=== PATIENT | female | born 1940 | race Caucasian/White ===

== ENCOUNTER → 2016-03-13 | Outpatient (CLI) | payer MEDICARE ==
[~2016-03-13] MED LIST: ALBUTEROL0.83 MG/ML IH; ALMACONE 360 M360 ML PO; ASPIRIN E.C. 8181 MG PO; CEPHALEXIN500 M1 PO; CIPRO 500MG TA500 MG PO; COREG12.5 MG PO; DEMADEX 20MG20 M1 PO; DOXYCYCLINE 10100 MG PO; FLEXERIL 1010 MG/TAB PO; FLEXERIL5 MG PO; FLONASE NASAL S16 GM NS; FLONASEALLERGY NS; GENTLE LAXATIVE10 MG RC; GLUCOPHAGE500 MG/TAB PO; IMODIUM 2MG CAPS2 MG PO; IPRATROPIUM BROM3 M1 IH; K-DUR20 MEQ PO; KLONOPIN 0.5MG0.5 MG PO; LASIX 20MG TABL20 MG PO; LASIX 40MG TABL40 MG; LASIX 40MG TABL40 MG PO; LASIX 80MG TABL80 MG PO; LEVAQUIN 5500 MG/TA1 PO; LEVAQUIN 750MG750 M1 PO; LEVEMIR100 U/ML SQ; LIORESAL 1010 MG/TAB PO; MEDROL 4MG DOSPA4 MG PO; MILK OF MA400 MG/52 PO; MOBIC15 MG PO; MUCINEX1200 MG PO; MYCOSTATIN100000 U/G TP; NEB; NORCO 325 MG-51 TAB PO; OMNICEF 300MG300 MG PO; PARCOPA 25/101 UDTAB PO; PLAVIX 75MG TAB75 MG PO; PREDNISONE20 MG PO; PROVENTIL0.09 MG/A1 IH; REQUIP 0.5MG0.5 MG PO; REQUIP 1MG T1 MG/TAB PO; RT ADVAIR 228 DISKUS IH; RT ADVAIR HFA 1112 G IH; SINEMET 25/101 UDTAB PO; TYLENOL 325MG325 MG PO; ZESTRIL30 MG PO; [UNRECOGNIZED DRUG - REMARK]
== END ==
LOC: COL.VAS 10:39
DX: M79.604 Pain in right leg (principal); M79.89 Other specified soft tissue disorders

== ENCOUNTER → 2016-03-18 | Outpatient (CLI) | payer MEDICARE | LOC: COL.RAD 11:37 | DX: M51.26 Other intervertebral disc displacement, lumbar region (principal) ==

== ENCOUNTER → 2016-04-01 | Outpatient (CLI) | payer MEDICARE ==
[~2016-04-01] VITALS: Ht 157.5 cm; Wt 118.2 kg
[2016-04-01 12:08] VITALS: BP 155/81; PULSE 93
[2016-04-01 14:15] VITALS: BP 187/103; PULSE 98
[2016-04-01 14:25] VITALS: BP 168/79; PULSE 97
== END ==
LOC: COL.RAD 11:54
DX: M48.06 Spinal stenosis, lumbar region (principal)
CPT/HCPCS: J3301

== ENCOUNTER 2016-04-20 07:49 | Emergency (ER) | payer MEDICARE ==
[~2016-04-20] VITALS: Ht 157.5 cm; Wt 118.2 kg
[~2016-04-20 07:49] MED LIST changes: -ALMACONE 360 M360 ML PO; -CEPHALEXIN500 M1 PO; -DEMADEX 20MG20 M1 PO; -DOXYCYCLINE 10100 MG PO; -FLONASEALLERGY NS; -GENTLE LAXATIVE10 MG RC; -IMODIUM 2MG CAPS2 MG PO; -IPRATROPIUM BROM3 M1 IH; -K-DUR20 MEQ PO; -LASIX 20MG TABL20 MG PO; -LASIX 80MG TABL80 MG PO; -MILK OF MA400 MG/52 PO; -MOBIC15 MG PO; -MYCOSTATIN100000 U/G TP; -REQUIP 1MG T1 MG/TAB PO; -SINEMET 25/101 UDTAB PO; -TYLENOL 325MG325 MG PO; -[UNRECOGNIZED DRUG - REMARK]
[2016-04-20 07:50] VITALS: BP 158/74; PULSE 96
[2016-04-20] MEDS ORDERED: [UNRECOGNIZED DRUG - REMARK] (08:03)
[2016-04-20] MEDS ORDERED: KLONOPIN 0.5MG0.5 MG PO (08:03)
[2016-04-20 08:41] VITALS: TEMP 97
[2016-06-16] MEDS ORDERED: LEVEMIR100 U/ML SQ (06:13)
[2016-06-16] MEDS ORDERED: ASPIRIN E.C. 8181 MG PO (06:13)
[2016-06-16] MEDS ORDERED: PLAVIX 75MG TAB75 MG PO (06:14)
[2016-06-16] MEDS ORDERED: DEMADEX 20MG20 M1 PO (06:15)
[2016-06-16] MEDS ORDERED: RT ADVAIR 228 DISKUS IH (06:15)
[2016-06-16] MEDS ORDERED: SINEMET 25/101 UDTAB PO (06:15)
[2016-06-16] MEDS ORDERED: MOBIC15 MG PO (06:16)
[2016-06-16] MEDS ORDERED: FLONASEALLERGY NS (06:17)
[2016-06-16] MEDS ORDERED: MYCOSTATIN100000 U/G TP (06:17)
[2016-06-16] MEDS ORDERED: IPRATROPIUM BROM3 M1 IH (06:18)
[2016-06-16] MEDS ORDERED: KLONOPIN 0.5MG0.5 MG PO (06:18)
[2016-06-16] MEDS ORDERED: MILK OF MA400 MG/52 PO (06:19)
[2016-06-16] MEDS ORDERED: ALMACONE 360 M360 ML PO (06:19)
[2016-06-16] MEDS ORDERED: GENTLE LAXATIVE10 MG RC (06:20)
[2016-06-16] MEDS ORDERED: IMODIUM 2MG CAPS2 MG PO (06:21)
[2016-06-16] MEDS ORDERED: TYLENOL 325MG325 MG PO (06:21)
[2016-06-16] MEDS ORDERED: NORCO 325 MG-51 TAB PO (06:21)
[2016-06-17] MEDS ORDERED: DEMADEX 20MG20 M1 PO (09:06)
[2016-06-17] MEDS ORDERED: MOBIC15 MG PO (09:08)
[2016-06-17] MEDS ORDERED: KLONOPIN 0.5MG0.5 MG PO (09:08)
[2016-06-20] MEDS ORDERED: REQUIP 1MG T1 MG/TAB PO (12:17)
== END 2016-04-20 08:40 | disposition home or self-care (01) ==
LOC: COL.ER 07:49
DX: S81.811A Laceration without foreign body, right lower leg, initial encounter (principal); L03.115 Cellulitis of right lower limb; W22.8XXA Striking against or struck by other objects, initial encounter; Y92.512 Supermarket, store or market as the place of occurrence of the external cause; I10 Essential (primary) hypertension; E11.9 Type 2 diabetes mellitus without complications

== ENCOUNTER 2016-04-29 16:54 | Emergency (ER) | payer MEDICARE ==
[~2016-04-29] VITALS: Ht 160 cm; Wt 118.2 kg
[~2016-04-29 16:54] MED LIST changes: +[UNRECOGNIZED DRUG - REMARK]
[2016-04-29 16:57] VITALS: TEMP 98.4
[2016-04-29] MEDS ORDERED: NORCO 325 MG-51 TAB PO (19:56)
[2016-04-29] MEDS ORDERED: CEPHALEXIN500 M1 PO (19:56)
[2016-04-29 20:12] VITALS: BP 123/72; PULSE 98
[2016-06-16] MEDS ORDERED: ASPIRIN E.C. 8181 MG PO (06:13)
[2016-06-16] MEDS ORDERED: LEVEMIR100 U/ML SQ (06:13)
[2016-06-16] MEDS ORDERED: PLAVIX 75MG TAB75 MG PO (06:14)
[2016-06-16] MEDS ORDERED: SINEMET 25/101 UDTAB PO (06:15)
[2016-06-16] MEDS ORDERED: DEMADEX 20MG20 M1 PO (06:15)
[2016-06-16] MEDS ORDERED: RT ADVAIR 228 DISKUS IH (06:15)
[2016-06-16] MEDS ORDERED: MOBIC15 MG PO (06:16)
[2016-06-16] MEDS ORDERED: MYCOSTATIN100000 U/G TP (06:17)
[2016-06-16] MEDS ORDERED: FLONASEALLERGY NS (06:17)
[2016-06-16] MEDS ORDERED: KLONOPIN 0.5MG0.5 MG PO (06:18)
[2016-06-16] MEDS ORDERED: IPRATROPIUM BROM3 M1 IH (06:18)
[2016-06-16] MEDS ORDERED: ALMACONE 360 M360 ML PO (06:19)
[2016-06-16] MEDS ORDERED: MILK OF MA400 MG/52 PO (06:19)
[2016-06-16] MEDS ORDERED: GENTLE LAXATIVE10 MG RC (06:20)
[2016-06-16] MEDS ORDERED: IMODIUM 2MG CAPS2 MG PO (06:21)
[2016-06-16] MEDS ORDERED: TYLENOL 325MG325 MG PO (06:21)
[2016-06-16] MEDS ORDERED: NORCO 325 MG-51 TAB PO (06:21)
[2016-06-17] MEDS ORDERED: DEMADEX 20MG20 M1 PO (09:06)
[2016-06-17] MEDS ORDERED: MOBIC15 MG PO (09:08)
[2016-06-17] MEDS ORDERED: KLONOPIN 0.5MG0.5 MG PO (09:08)
[2016-06-20] MEDS ORDERED: REQUIP 1MG T1 MG/TAB PO (12:17)
== END 2016-04-29 20:34 | disposition home or self-care (01) ==
LOC: COL.ER 16:54
DX: L03.115 Cellulitis of right lower limb (principal); S80.211A Abrasion, right knee, initial encounter; M53.3 Sacrococcygeal disorders, not elsewhere classified; M79.674 Pain in right toe(s); S81.801D Unspecified open wound, right lower leg, subsequent encounter; W19.XXXD Unspecified fall, subsequent encounter; W01.198A Fall on same level from slipping, tripping and stumbling with subsequent striking against other object, initial encounter; Y92.007 Garden or yard of unspecified non-institutional (private) residence as the place of occurrence of the external cause; Z91.81 History of falling; J44.9 Chronic obstructive pulmonary disease, unspecified; E11.9 Type 2 diabetes mellitus without complications; Z79.4 Long term (current) use of insulin; Z79.02 Long term (current) use of antithrombotics/antiplatelets
CPT/HCPCS: L1830

== ENCOUNTER 2016-04-30 17:50 | Emergency (ER) | payer MEDICARE ==
[~2016-04-30] VITALS: Ht 157.5 cm; Wt 118.2 kg
[~2016-04-30 17:50] MED LIST changes: +CEPHALEXIN500 M1 PO
[2016-04-30 17:59] VITALS: BP 139/80; TEMP 97.1
[2016-04-30 19:35] VITALS: PULSE 95
[2016-06-16] MEDS ORDERED: ASPIRIN E.C. 8181 MG PO (06:13)
[2016-06-16] MEDS ORDERED: LEVEMIR100 U/ML SQ (06:13)
[2016-06-16] MEDS ORDERED: PLAVIX 75MG TAB75 MG PO (06:14)
[2016-06-16] MEDS ORDERED: DEMADEX 20MG20 M1 PO (06:15)
[2016-06-16] MEDS ORDERED: RT ADVAIR 228 DISKUS IH (06:15)
[2016-06-16] MEDS ORDERED: SINEMET 25/101 UDTAB PO (06:15)
[2016-06-16] MEDS ORDERED: MOBIC15 MG PO (06:16)
[2016-06-16] MEDS ORDERED: MYCOSTATIN100000 U/G TP (06:17)
[2016-06-16] MEDS ORDERED: FLONASEALLERGY NS (06:17)
[2016-06-16] MEDS ORDERED: IPRATROPIUM BROM3 M1 IH (06:18)
[2016-06-16] MEDS ORDERED: KLONOPIN 0.5MG0.5 MG PO (06:18)
[2016-06-16] MEDS ORDERED: ALMACONE 360 M360 ML PO (06:19)
[2016-06-16] MEDS ORDERED: MILK OF MA400 MG/52 PO (06:19)
[2016-06-16] MEDS ORDERED: GENTLE LAXATIVE10 MG RC (06:20)
[2016-06-16] MEDS ORDERED: TYLENOL 325MG325 MG PO (06:21)
[2016-06-16] MEDS ORDERED: NORCO 325 MG-51 TAB PO (06:21)
[2016-06-16] MEDS ORDERED: IMODIUM 2MG CAPS2 MG PO (06:21)
[2016-06-17] MEDS ORDERED: DEMADEX 20MG20 M1 PO (09:06)
[2016-06-17] MEDS ORDERED: KLONOPIN 0.5MG0.5 MG PO (09:08)
[2016-06-17] MEDS ORDERED: MOBIC15 MG PO (09:08)
[2016-06-20] MEDS ORDERED: REQUIP 1MG T1 MG/TAB PO (12:17)
== END 2016-04-30 19:35 | disposition home or self-care (01) ==
LOC: COL.ER 17:50
DX: S81.812A Laceration without foreign body, left lower leg, initial encounter (principal); W22.8XXA Striking against or struck by other objects, initial encounter; Y92.009 Unspecified place in unspecified non-institutional (private) residence as the place of occurrence of the external cause; E11.9 Type 2 diabetes mellitus without complications; Z88.0 Allergy status to penicillin; Z79.4 Long term (current) use of insulin

== ENCOUNTER 2016-05-22 17:51 | Inpatient (IN) | payer MEDICARE ==
[~2016-05-22] VITALS: Ht 157.5 cm; Wt 128.7 kg
[2016-05-22 18:47] LABS: BASO # 0.1 (0.0-0.2); BASO % 0.4 % (0.0-2.0); EOS # 0.2 (0.0-0.7); GRAN # 8.2 (1.4-6.5); GRAN % 69.6 % (42.2-75.2); HEMATOCRIT 35.4 % (37.0-47.0); HEMOGLOBIN 11.1 g/dl (12.5-16.0); LYMPH # 2.6 (1.2-3.4); LYMPH % 21.6 % (20.0-51.0); MEAN CELL VOLUME 98 fl (80.0-100.0); MEAN CORPUSCULAR HEMOGLOBIN 31 pg (27.0-31.0); MEAN CORPUSCULAR HGB CONC 31 g/dl (33.0-37.0); MEAN PLATELET VOLUME 11.2 fl (7.4-10.4); MONO # 0.7 (0.1-0.6); MONO % 6.1 % (1.7-9.3); PLATELET COUNT 176 K/mm3 (130-400); RED BLOOD COUNT 3.62 M/mm3 (4.10-5.30); REDCELL DISTRIBUTION WIDTH-CV 16.3 % (11.5-14.5); WHITE BLOOD COUNT 11.8 K/mm3 (4.8-10.8)
[2016-05-22 18:59] LABS: ADJUSTED CALCIUM 9.3 mg/dL (8.4-10.2); ALBUMIN 3.8 gm/dL (3.5-5.0); BILIRUBIN,TOTAL 0.7 mg/dL (0.0-1.0); CALCIUM 9.1 mg/dL (8.4-10.2); CREATININE, serum 0.98 mg/dL (0.52-1.25); POTASSIUM 4.9 mmol/L (3.4-5.0); TOTAL PROTEIN 6.6 gm/dL (6.4-8.2)
[2016-05-22 19:17] LABS: PROTHROMBIN TIME 10.8 SECONDS (9.7-12.8)
[2016-05-22 19:20] LABS: PARTIAL THROMBOPLASTIN TIME 26.6 SECONDS (26.0-37.0)
[2016-05-22 19:33] LABS: TROPONIN-I 0.023 ng/mL (0.000-0.034)
[2016-05-22 19:34] VITALS: BP 123/64; PULSE 97
[2016-05-22 22:11] VITALS: BP 133/50; PULSE 95; TEMP 98.8
[2016-05-23] VITALS (8 sets, daily range): BP systolic 106–154; BP diastolic 34–74; PULSE 79–102; TEMP 97.2–98.7
[2016-05-23 07:21] LABS: BASO # 0.1 (0.0-0.2); BASO % 0.5 % (0.0-2.0); EOS # 0.3 (0.0-0.7); EOS % 2.8 % (0-4.0); GRAN # 6.4 (1.4-6.5); LYMPH # 2.7 (1.2-3.4); LYMPH % 26.5 % (20.0-51.0); MEAN CELL VOLUME 99 fl (80.0-100.0); MEAN CORPUSCULAR HGB CONC 30 g/dl (33.0-37.0); MEAN PLATELET VOLUME 11.4 fl (7.4-10.4); MONO # 0.7 (0.1-0.6); MONO % 6.8 % (1.7-9.3); PLATELET COUNT 205 K/mm3 (130-400); RED BLOOD COUNT 3.68 M/mm3 (4.10-5.30); REDCELL DISTRIBUTION WIDTH-CV 16.6 % (11.5-14.5); WHITE BLOOD COUNT 10.2 K/mm3 (4.8-10.8)
[2016-05-23 07:29] LABS: CREATININE, serum 0.99 mg/dL (0.52-1.25); POTASSIUM 4.8 mmol/L (3.4-5.0)
[2016-05-23 07:38] LABS: TROPONIN-I 0.043 ng/mL (0.000-0.034)
[2016-05-23 07:41] LABS: HEMATOCRIT 36.5 % (37.0-47.0); HEMOGLOBIN 11.1 g/dl (12.5-16.0); MEAN CORPUSCULAR HEMOGLOBIN 30 pg (27.0-31.0)
[2016-05-24] VITALS (7 sets, daily range): BP systolic 121–157; BP diastolic 35–89; PULSE 70–103; TEMP 97.9–98.7
[2016-05-24 07:23] LABS: CALCIUM 8.7 mg/dL (8.4-10.2); CREATININE, serum 0.96 mg/dL (0.52-1.25); POTASSIUM 4.2 mmol/L (3.4-5.0)
[2016-05-25 03:28] VITALS: BP 135/56; PULSE 92; TEMP 98.3
[2016-05-25 08:45] LABS: CREATININE, serum 1.05 mg/dL (0.52-1.25); POTASSIUM 4.2 mmol/L (3.4-5.0)
[2016-05-25 09:29] VITALS: BP 134/50; PULSE 87; TEMP 97.8
[2016-05-25 13:42] VITALS: BP 111/48; PULSE 96; TEMP 98.5
[2016-05-25 17:47] VITALS: BP 132/62; PULSE 89; TEMP 98.7
[2016-05-25 19:54] VITALS: BP 133/50; PULSE 106; TEMP 98.6
[2016-05-26 00:08] VITALS: BP 138/48; PULSE 91; TEMP 98.8
[2016-05-26 04:08] VITALS: BP 130/54; PULSE 64; TEMP 97.8
[2016-05-26 07:42] VITALS: BP 121/59; PULSE 93; TEMP 98.3
[2016-05-26 07:46] LABS: CALCIUM 9.3 mg/dL (8.4-10.2); CREATININE, serum 1.1 mg/dL (0.52-1.25); POTASSIUM 4.3 mmol/L (3.4-5.0)
[2016-05-26 11:18] VITALS: BP 136/45; PULSE 91; TEMP 97.8
[2016-05-26 15:27] VITALS: BP 119/41; PULSE 92; TEMP 98.4
[2016-05-26 20:11] VITALS: BP 142/56; PULSE 100; TEMP 98.5
[2016-05-27 00:36] VITALS: BP 158/60; PULSE 92; TEMP 97.3
[2016-05-27 04:47] VITALS: BP 133/57; PULSE 90; TEMP 98.1
[2016-05-27 07:38] VITALS: BP 120/49; PULSE 83; TEMP 98
[2016-05-27 08:16] LABS: CREATININE, serum 0.96 mg/dL (0.52-1.25)
[2016-05-27 12:06] VITALS: BP 128/45; PULSE 92; TEMP 98
[2016-05-27] MEDS ORDERED: DEMADEX 20MG20 M1 PO (14:01)
[2016-05-27 15:35] VITALS: BP 151/60; PULSE 102; TEMP 98.4
[2016-06-16] MEDS ORDERED: LEVEMIR100 U/ML SQ (06:13)
[2016-06-16] MEDS ORDERED: ASPIRIN E.C. 8181 MG PO (06:13)
[2016-06-16] MEDS ORDERED: PLAVIX 75MG TAB75 MG PO (06:14)
[2016-06-16] MEDS ORDERED: SINEMET 25/101 UDTAB PO (06:15)
[2016-06-16] MEDS ORDERED: DEMADEX 20MG20 M1 PO (06:15)
[2016-06-16] MEDS ORDERED: RT ADVAIR 228 DISKUS IH (06:15)
[2016-06-16] MEDS ORDERED: MOBIC15 MG PO (06:16)
[2016-06-16] MEDS ORDERED: FLONASEALLERGY NS (06:17)
[2016-06-16] MEDS ORDERED: MYCOSTATIN100000 U/G TP (06:17)
[2016-06-16] MEDS ORDERED: KLONOPIN 0.5MG0.5 MG PO (06:18)
[2016-06-16] MEDS ORDERED: IPRATROPIUM BROM3 M1 IH (06:18)
[2016-06-16] MEDS ORDERED: MILK OF MA400 MG/52 PO (06:19)
[2016-06-16] MEDS ORDERED: ALMACONE 360 M360 ML PO (06:19)
[2016-06-16] MEDS ORDERED: GENTLE LAXATIVE10 MG RC (06:20)
[2016-06-16] MEDS ORDERED: TYLENOL 325MG325 MG PO (06:21)
[2016-06-16] MEDS ORDERED: NORCO 325 MG-51 TAB PO (06:21)
[2016-06-16] MEDS ORDERED: IMODIUM 2MG CAPS2 MG PO (06:21)
[2016-06-17] MEDS ORDERED: DEMADEX 20MG20 M1 PO (09:06)
[2016-06-17] MEDS ORDERED: KLONOPIN 0.5MG0.5 MG PO (09:08)
[2016-06-17] MEDS ORDERED: MOBIC15 MG PO (09:08)
[2016-06-20] MEDS ORDERED: REQUIP 1MG T1 MG/TAB PO (12:17)
== END 2016-05-27 17:40 | disposition home health service (06) | DRG 292 ==
LOC: COL.ER 17:51 → MEDICAL 19:49
PROVIDERS: Emergency Medicine; Family Medicine; Internal Medicine Cardiovascular Disease
DX: I50.33 Acute on chronic diastolic (congestive) heart failure (principal); Z68.43 Body mass index [BMI] 50.0-59.9, adult; J44.9 Chronic obstructive pulmonary disease, unspecified; E11.9 Type 2 diabetes mellitus without complications; Z79.4 Long term (current) use of insulin; I25.10 Atherosclerotic heart disease of native coronary artery without angina pectoris; Z95.5 Presence of coronary angioplasty implant and graft; G20 Parkinson's disease; Z87.891 Personal history of nicotine dependence; E66.01 Morbid (severe) obesity due to excess calories; I87.8 Other specified disorders of veins
CPT/HCPCS: OP; 99222-AI; 99232-AI; 99233-AI; 99239; G0378; G8978-GP; G8979-GP; G8987-GO; G8988-GO; J0696; J1644; J1650; J1815; J1940; J3475; J7512

== ENCOUNTER → 2016-06-20 | Outpatient (CLI) | payer MEDICARE ==
[~2016-06-20] VITALS: Ht 157.5 cm; Wt 118.2 kg
[~2016-06-20] MED LIST changes: +ALMACONE 360 M360 ML PO; +DEMADEX 20MG20 M1 PO; +DOXYCYCLINE 10100 MG PO; +FLONASEALLERGY NS; +GENTLE LAXATIVE10 MG RC; +IMODIUM 2MG CAPS2 MG PO; +IPRATROPIUM BROM3 M1 IH; +K-DUR20 MEQ PO; +LASIX 20MG TABL20 MG PO; +LASIX 80MG TABL80 MG PO; +MILK OF MA400 MG/52 PO; +MOBIC15 MG PO; +MYCOSTATIN100000 U/G TP; +REQUIP 1MG T1 MG/TAB PO; +SINEMET 25/101 UDTAB PO; +TYLENOL 325MG325 MG PO
[2016-06-20 12:20] VITALS: BP 142/53; PULSE 86
[2016-06-20 13:23] VITALS: BP 159/75; PULSE 92
== END ==
LOC: COL.RAD 06-17 10:00
DX: M48.06 Spinal stenosis, lumbar region (principal)
CPT/HCPCS: J3301

== ENCOUNTER → 2016-06-23 | Outpatient (REF) ==
[2016-06-23 14:49] LABS: ADJUSTED CALCIUM 9.2 mg/dL (8.4-10.2); ALBUMIN 3.9 gm/dL (3.5-5.0); BILIRUBIN,TOTAL 0.8 mg/dL (0.0-1.0); CALCIUM 9.1 mg/dL (8.4-10.2); CREATININE, serum 1.25 mg/dL (0.52-1.25); POTASSIUM 4.6 mmol/L (3.4-5.0); TOTAL PROTEIN 6.8 gm/dL (6.4-8.2)
== END ==
LOC: ZCOL.LAB 14:18
PROVIDERS: Family Medicine
DX: Z01.89 Encounter for other specified special examinations (principal)

== ENCOUNTER 2016-08-29 18:49 | Emergency (ER) | payer MEDICARE ==
[~2016-08-29] VITALS: Ht 157.5 cm; Wt 124.5 kg
[~2016-08-29 18:49] MED LIST changes: -DOXYCYCLINE 10100 MG PO; -K-DUR20 MEQ PO; -LASIX 20MG TABL20 MG PO; -LASIX 80MG TABL80 MG PO
[2016-08-29 18:51] VITALS: TEMP 98.7
[2016-08-29 19:44] LABS: BASO # 0.1 (0.0-0.2); BASO % 0.6 % (0.0-2.0); EOS # 0.2 (0.0-0.7); EOS % 1.5 % (0-4.0); GRAN # 8.3 (1.4-6.5); GRAN % 67.4 % (42.2-75.2); HEMATOCRIT 38.9 % (37.0-47.0); HEMOGLOBIN 12.4 g/dl (12.5-16.0); LYMPH # 3.1 (1.2-3.4); LYMPH % 25.2 % (20.0-51.0); MEAN CELL VOLUME 91 fl (80.0-100.0); MEAN CORPUSCULAR HEMOGLOBIN 29 pg (27.0-31.0); MEAN CORPUSCULAR HGB CONC 32 g/dl (33.0-37.0); MEAN PLATELET VOLUME 10.8 fl (7.4-10.4); MONO # 0.6 (0.1-0.6); MONO % 4.8 % (1.7-9.3); PLATELET COUNT 201 K/mm3 (130-400); RED BLOOD COUNT 4.26 M/mm3 (4.10-5.30); WHITE BLOOD COUNT 12.3 K/mm3 (4.8-10.8)
[2016-08-29 19:54] LABS: ADJUSTED CALCIUM 9.5 mg/dL (8.4-10.2); ALANINE AMINOTRANSFERASE 14 U/L (9-52); ALBUMIN 3.9 gm/dL (3.5-5.0); ALKALINE PHOSPHATASE 85 U/L (50-136); ANION GAP 12 mmol/L (7-16); BILIRUBIN,TOTAL 0.6 mg/dL (0.0-1.0); BLOOD UREA NITROGEN 35 mg/dL (7-17); CALCIUM 9.4 mg/dL (8.4-10.2); CARBON DIOXIDE 33 mmol/L (22-30); CHLORIDE 93 mmol/L (98-107); CREATINE KINASE 96 U/L (30-135); GLUCOSE 186 mg/dL (74-106); POTASSIUM 4.2 mmol/L (3.4-5.0); SODIUM 138 mmol/L (137-145); TOTAL PROTEIN 7.3 gm/dL (6.4-8.2)
[2016-08-29 20:00] LABS: ARTERIAL BLD GAS O2 SATURATION 96.2 % (92-100); ARTERIAL BLD GAS TCO2 CT 35.6; ARTERIAL BLOOD GAS BASE EXCESS 7.4 (-2-2); ARTERIAL BLOOD GAS HCO3 33.8 meq/L (22-26); ARTERIAL BLOOD GAS PO2 90.1 mmHg (80-100); OXYHEMOGLOBIN 95.1 %
[2016-08-29 20:01] LABS: ALLEN TEST YES; ALLENS TEST RESULT PASS; ATS? YES
[2016-08-29 20:02] LABS: PROTHROMBIN TIME 10.8 SECONDS (9.7-12.8)
[2016-08-29 20:05] LABS: B-TYPE NATRIURETIC PEPTIDE 641 pg/mL (0-450)
[2016-08-29 20:08] LABS: TROPONIN-I < 0.012 ng/mL (0.000-0.034)
[2016-08-29] MEDS ORDERED: LASIX 20MG TABL20 MG PO (20:43)
[2016-08-29] MEDS ORDERED: DOXYCYCLINE 10100 MG PO (20:54)
[2016-08-29] MEDS ORDERED: PREDNISONE20 MG PO (20:54)
[2016-08-29 20:59] VITALS: BP 143/54; PULSE 58
== END 2016-08-29 21:32 | disposition home or self-care (01) ==
LOC: COL.ER 18:49
PROVIDERS: Emergency Medicine
DX: J44.1 Chronic obstructive pulmonary disease with (acute) exacerbation (principal); E11.9 Type 2 diabetes mellitus without complications; I50.9 Heart failure, unspecified; G20 Parkinson's disease; Z79.4 Long term (current) use of insulin; Z79.82 Long term (current) use of aspirin; Z79.02 Long term (current) use of antithrombotics/antiplatelets; Z95.5 Presence of coronary angioplasty implant and graft; Z95.9 Presence of cardiac and vascular implant and graft, unspecified; Z90.710 Acquired absence of both cervix and uterus; Z90.89 Acquired absence of other organs
CPT/HCPCS: J2930; J7512

== ENCOUNTER 2016-09-05 16:39 | Emergency (ER) | payer MEDICARE ==
[~2016-09-05] VITALS: Ht 157.5 cm; Wt 124.5 kg
[~2016-09-05 16:39] MED LIST changes: +DOXYCYCLINE 10100 MG PO; +LASIX 20MG TABL20 MG PO
[2016-09-05 16:43] VITALS: TEMP 98.3
[2016-09-05 17:13] LABS: VENOUS BLOOD GAS BE 7.4 (-4-4); VENOUS BLOOD GAS SAO2 76.4 % (60-80)
[2016-09-05 17:14] LABS: VENOUS BLOOD GAS SITE VENIPUNCTURE
[2016-09-05 17:16] LABS: BASO # 0.1 (0.0-0.2); BASO % 0.3 % (0.0-2.0); EOS % 0.2 % (0-4.0); GRAN # 12.5 (1.4-6.5); GRAN % 69.8 % (42.2-75.2); HEMATOCRIT 41.4 % (37.0-47.0); HEMOGLOBIN 13.5 g/dl (12.5-16.0); LYMPH # 4.4 (1.2-3.4); LYMPH % 24.6 % (20.0-51.0); MEAN CELL VOLUME 89 fl (80.0-100.0); MEAN CORPUSCULAR HEMOGLOBIN 29 pg (27.0-31.0); MEAN CORPUSCULAR HGB CONC 33 g/dl (33.0-37.0); MEAN PLATELET VOLUME 11.2 fl (7.4-10.4); MONO # 0.8 (0.1-0.6); MONO % 4.5 % (1.7-9.3); PLATELET COUNT 201 K/mm3 (130-400); RED BLOOD COUNT 4.66 M/mm3 (4.10-5.30); REDCELL DISTRIBUTION WIDTH-CV 15.7 % (11.5-14.5); WHITE BLOOD COUNT 17.9 K/mm3 (4.8-10.8)
[2016-09-05 17:34] LABS: CALCIUM 9.2 mg/dL (8.4-10.2); CREATININE, serum 1.08 mg/dL (0.52-1.25); POTASSIUM 3.4 mmol/L (3.4-5.0)
[2016-09-05 17:45] LABS: TROPONIN-I 0.013 ng/mL (0.000-0.034)
[2016-09-05 18:09] LABS: PH 6 (5-8); SQUAMOUS EPITHELIAL None Seen /hpf; URINE APPEARANCE Clear; URINE BACTERIA None Seen /hpf; URINE BILIRUBIN Negative (NEGATIVE); URINE BLOOD Negative (NEGATIVE); URINE COLOR Yellow; URINE GLUCOSE Negative (NEGATIVE); URINE KETONE Negative (NEGATIVE); URINE RBC 0-2 /hpf; URINE UROBILINOGEN Negative (NEGATIVE); URINE WBC 0-2 /hpf
[2016-09-05] MEDS ORDERED: PREDNISONE20 MG PO (18:35)
[2016-09-05 19:01] VITALS: BP 160/69; PULSE 91
== END 2016-09-05 19:03 | disposition home or self-care (01) ==
LOC: COL.ER 16:39
PROVIDERS: Emergency Medicine
DX: R06.00 Dyspnea, unspecified (principal); I11.0 Hypertensive heart disease with heart failure; I50.9 Heart failure, unspecified; I25.10 Atherosclerotic heart disease of native coronary artery without angina pectoris; G20 Parkinson's disease; E11.9 Type 2 diabetes mellitus without complications; Z95.5 Presence of coronary angioplasty implant and graft; Z79.4 Long term (current) use of insulin; Z79.02 Long term (current) use of antithrombotics/antiplatelets
CPT/HCPCS: J7030; J7512

== ENCOUNTER 2016-09-24 18:04 | Inpatient (IN) | payer MEDICARE ==
[2016-09-24] VITALS (211 sets, daily range): BP systolic 148; BP diastolic 79; PULSE 100; TEMP 97.8; O2SAT 67–100
[~2016-09-24] VITALS: Ht 157.5 cm; Wt 120.7 kg
[2016-09-24 18:46] LABS: ARTERIAL BLD GAS O2 SATURATION 95.6 % (92-100); ARTERIAL BLD GAS TCO2 CT 36.3; ARTERIAL BLOOD GAS BASE EXCESS 7.5 (-2-2); ARTERIAL BLOOD GAS HCO3 34.5 meq/L (22-26); ARTERIAL BLOOD GAS PO2 89.2 mmHg (80-100); ARTERIAL BLOOD GAS pH 7.37 (7.35-7.45); OXYHEMOGLOBIN 94.9 %
[2016-09-24 18:47] LABS: ALLEN TEST YES; ALLENS TEST RESULT PASS; ATS? YES
[2016-09-24 18:51] LABS: BASO % 0.3 % (0.0-2.0); EOS # 0.3 (0.0-0.7); EOS % 2.7 % (0-4.0); GRAN # 5.9 (1.4-6.5); GRAN % 61.7 % (42.2-75.2); LYMPH # 2.6 (1.2-3.4); LYMPH % 27.1 % (20.0-51.0); MEAN CELL VOLUME 91 fl (80.0-100.0); MEAN CORPUSCULAR HGB CONC 32 g/dl (33.0-37.0); MEAN PLATELET VOLUME 10.5 fl (7.4-10.4); MONO # 0.7 (0.1-0.6); MONO % 7.7 % (1.7-9.3); PLATELET COUNT 239 K/mm3 (130-400); RED BLOOD COUNT 3.72 M/mm3 (4.10-5.30); REDCELL DISTRIBUTION WIDTH-CV 16.9 % (11.5-14.5); WHITE BLOOD COUNT 9.6 K/mm3 (4.8-10.8)
[2016-09-24 18:54] LABS: HEMATOCRIT 33.9 % (37.0-47.0); HEMOGLOBIN 10.9 g/dl (12.5-16.0); MEAN CORPUSCULAR HEMOGLOBIN 29 pg (27.0-31.0)
[2016-09-24 18:56] LABS: ADJUSTED CALCIUM 9.5 mg/dL (8.4-10.2); ALBUMIN 3.5 gm/dL (3.5-5.0); BILIRUBIN,TOTAL 0.8 mg/dL (0.0-1.0); CALCIUM 9.1 mg/dL (8.4-10.2); CREATININE, serum 0.89 mg/dL (0.52-1.25); POTASSIUM 4.2 mmol/L (3.4-5.0); TOTAL PROTEIN 6.8 gm/dL (6.4-8.2)
[2016-09-24 19:10] LABS: PH 6 (5-8); SQUAMOUS EPITHELIAL 0-2 /hpf; URINE APPEARANCE Clear; URINE BACTERIA Rare /hpf; URINE BILIRUBIN Negative (NEGATIVE); URINE BLOOD Negative (NEGATIVE); URINE COLOR Yellow; URINE GLUCOSE Negative (NEGATIVE); URINE KETONE Negative (NEGATIVE); URINE RBC 0-2 /hpf; URINE UROBILINOGEN Negative (NEGATIVE); URINE WBC 0-2 /hpf
[2016-09-24 21:58] LABS: TROPONIN-I 0.033 ng/mL (0.000-0.034)
[2016-09-25] VITALS (593 sets, daily range): BP systolic 119–151; BP diastolic 48–78; PULSE 78–103; TEMP 97.7–99.2; O2SAT 86–99
[2016-09-25 00:24] LABS: ARTERIAL BLD GAS O2 SATURATION 91.2 % (92-100); ARTERIAL BLD GAS TCO2 CT 39.7; ARTERIAL BLOOD GAS BASE EXCESS 9.7 (-2-2); ARTERIAL BLOOD GAS HCO3 37.6 meq/L (22-26); ARTERIAL BLOOD GAS PO2 65.5 mmHg (80-100); ARTERIAL BLOOD GAS pH 7.36 (7.35-7.45); OXYHEMOGLOBIN 90.1 %
[2016-09-25 00:25] LABS: ALLEN TEST YES; ALLENS TEST RESULT PASS; ATS? YES
[2016-09-25 03:35] LABS: ARTERIAL BLD GAS O2 SATURATION 95.2 % (92-100); ARTERIAL BLD GAS TCO2 CT 36.3; ARTERIAL BLOOD GAS BASE EXCESS 7.9 (-2-2); ARTERIAL BLOOD GAS HCO3 34.5 meq/L (22-26); ARTERIAL BLOOD GAS PO2 81.5 mmHg (80-100); ARTERIAL BLOOD GAS pH 7.39 (7.35-7.45); OXYHEMOGLOBIN 94.5 %
[2016-09-25 03:36] LABS: ABG VENTILATOR TIDAL VOLUME 572 mL; ALLEN TEST YES; ALLENS TEST RESULT PASS; ATS? YES
[2016-09-25 05:46] LABS: MEAN CELL VOLUME 92 fl (80.0-100.0); MEAN CORPUSCULAR HGB CONC 32 g/dl (33.0-37.0); MEAN PLATELET VOLUME 10.5 fl (7.4-10.4); PLATELET COUNT 244 K/mm3 (130-400); RED BLOOD COUNT 3.64 M/mm3 (4.10-5.30); REDCELL DISTRIBUTION WIDTH-CV 16.4 % (11.5-14.5); WHITE BLOOD COUNT 9.2 K/mm3 (4.8-10.8)
[2016-09-25 05:48] LABS: HEMATOCRIT 33.3 % (37.0-47.0); HEMOGLOBIN 10.8 g/dl (12.5-16.0); MEAN CORPUSCULAR HEMOGLOBIN 30 pg (27.0-31.0)
[2016-09-25 05:58] LABS: CALCIUM 8.9 mg/dL (8.4-10.2); CREATININE, serum 0.88 mg/dL (0.52-1.25); POTASSIUM 4.6 mmol/L (3.4-5.0)
[2016-09-26 02:58] VITALS: BP 133/54; PULSE 86; TEMP 97.4
[2016-09-26 06:25] LABS: CALCIUM 8.9 mg/dL (8.4-10.2); CREATININE, serum 1.06 mg/dL (0.52-1.25); POTASSIUM 4.3 mmol/L (3.4-5.0)
[2016-09-26 07:12] VITALS: BP 151/72; PULSE 78; TEMP 98
[2016-09-26 11:29] VITALS: BP 158/61; PULSE 101; TEMP 98.5
[2016-09-26 15:16] VITALS: BP 122/52; PULSE 101; TEMP 96.6
[2016-09-26 19:55] VITALS: BP 155/61; PULSE 104; TEMP 97.6
[2016-09-27 00:40] VITALS: BP 140/60; PULSE 91; TEMP 97.5
[2016-09-27 03:21] VITALS: BP 127/59; PULSE 85; TEMP 97.8
[2016-09-27 07:35] VITALS: BP 110/71; PULSE 94; TEMP 97.3
[2016-09-27 08:56] LABS: CALCIUM 8.9 mg/dL (8.4-10.2); CREATININE, serum 0.97 mg/dL (0.52-1.25); POTASSIUM 3.6 mmol/L (3.4-5.0)
[2016-09-27 11:59] VITALS: BP 111/47; PULSE 90; TEMP 97.8
[2016-09-27 16:03] VITALS: BP 142/67; PULSE 105; TEMP 98.2
[2016-09-27 20:56] VITALS: BP 152/53; PULSE 99; TEMP 97.9
[2016-09-28 00:12] VITALS: BP 108/75; PULSE 86; TEMP 97
[2016-09-28 03:29] VITALS: BP 157/58; PULSE 89; TEMP 97.2
[2016-09-28 07:24] VITALS: BP 104/61; PULSE 96; TEMP 98
[2016-09-28 08:06] LABS: CALCIUM 8.5 mg/dL (8.4-10.2); CREATININE, serum 0.95 mg/dL (0.52-1.25); MAGNESIUM 2.1 mg/dL (1.6-2.3); POTASSIUM 3.9 mmol/L (3.4-5.0)
[2016-09-28 11:17] VITALS: BP 126/64; PULSE 100; TEMP 97.6
[2016-09-28 15:32] VITALS: BP 135/56; PULSE 108; TEMP 98.3
[2016-09-28 20:40] VITALS: BP 152/59; PULSE 013; PULSE 102; TEMP 97.4
[2016-09-29 00:23] VITALS: BP 127/59; PULSE 99; TEMP 97.1
[2016-09-29 04:08] VITALS: BP 113/44; PULSE 86; TEMP 97.1
[2016-09-29 07:45] VITALS: BP 149/88; PULSE 88; TEMP 97.9
[2016-09-29] MEDS ORDERED: LASIX 80MG TABL80 MG PO (08:58)
[2016-09-29] MEDS ORDERED: PREDNISONE20 MG PO (09:00)
[2016-09-29] MEDS ORDERED: K-DUR20 MEQ PO (09:01)
[2016-09-29 09:17] VITALS: BP 129/43; PULSE 92; TEMP 98.2
== END 2016-09-29 11:00 | disposition home health service (06) | DRG 189 ==
LOC: COL.ER 18:04 → ICU 19:38 → MEDICAL 19:38
PROVIDERS: Family Medicine; Internal Medicine; Nurse Practitioner Family
DX: J96.22 Acute and chronic respiratory failure with hypercapnia (principal); I50.31 Acute diastolic (congestive) heart failure; J44.1 Chronic obstructive pulmonary disease with (acute) exacerbation; E11.9 Type 2 diabetes mellitus without complications; G25.81 Restless legs syndrome; G20 Parkinson's disease; I11.0 Hypertensive heart disease with heart failure; R07.9 Chest pain, unspecified; I25.10 Atherosclerotic heart disease of native coronary artery without angina pectoris; D63.8 Anemia in other chronic diseases classified elsewhere; Z87.891 Personal history of nicotine dependence; Z95.5 Presence of coronary angioplasty implant and graft; Z99.81 Dependence on supplemental oxygen; Z79.4 Long term (current) use of insulin
CPT/HCPCS: 99223-AI; 99232-AI; 99233-AI; 99239; J0456; J1650; J1815; J1940; J2930; J7030; J7050; J7512

== ENCOUNTER → 2016-10-02 | Outpatient (CLI) | payer MEDICARE ==
[~2016-10-02] MED LIST changes: +K-DUR20 MEQ PO; +LASIX 80MG TABL80 MG PO
[2016-10-02 12:59] LABS: HEMATOCRIT 38.9 % (37.0-47.0); HEMOGLOBIN 12.4 g/dl (12.5-16.0); MEAN CELL VOLUME 92 fl (80.0-100.0); MEAN CORPUSCULAR HEMOGLOBIN 29 pg (27.0-31.0); MEAN CORPUSCULAR HGB CONC 32 g/dl (33.0-37.0); MEAN PLATELET VOLUME 11.1 fl (7.4-10.4); PLATELET COUNT 284 K/mm3 (130-400); RED BLOOD COUNT 4.22 M/mm3 (4.10-5.30); REDCELL DISTRIBUTION WIDTH-CV 16.5 % (11.5-14.5); WHITE BLOOD COUNT 16.5 K/mm3 (4.8-10.8)
[2016-10-02 13:21] LABS: CALCIUM 9.1 mg/dL (8.4-10.2); CREATININE, serum 1.02 mg/dL (0.52-1.25); MAGNESIUM 2.2 mg/dL (1.6-2.3); POTASSIUM 5.4 mmol/L (3.4-5.0)
== END ==
LOC: COL.LAB 12:06
PROVIDERS: Family Medicine
DX: I50.9 Heart failure, unspecified (principal); D64.9 Anemia, unspecified

== ENCOUNTER 2016-12-19 18:55 | Inpatient (IN) | payer MEDICARE ==
[~2016-12-19] VITALS: Wt 121.8 kg
[2016-12-19] MEDS ORDERED: CEFTIN 250250 MG/TAB PO (19:08)
[2016-12-19] MEDS ORDERED: LIORESAL 1010 MG/TAB PO (19:09)
[2016-12-19] MEDS ORDERED: KLONOPIN WAFER0.5 MG PO (19:09)
[2016-12-19] MEDS ORDERED: RT ADVAIR HFA 1112 G IH (19:11)
[2016-12-19 19:26] LABS: BASO # 0.1 (0.0-0.2); BASO % 0.4 % (0.0-2.0); EOS # 0.2 (0.0-0.7); EOS % 1.2 % (0-4.0); GRAN # 8.7 (1.4-6.5); GRAN % 64.2 % (42.2-75.2); HEMATOCRIT 37.4 % (37.0-47.0); LYMPH # 3.7 (1.2-3.4); LYMPH % 27.2 % (20.0-51.0); MEAN CELL VOLUME 97 fl (80.0-100.0); MEAN CORPUSCULAR HEMOGLOBIN 30 pg (27.0-31.0); MEAN CORPUSCULAR HGB CONC 31 g/dl (33.0-37.0); MEAN PLATELET VOLUME 11.3 fl (7.4-10.4); MONO # 0.9 (0.1-0.6); MONO % 6.6 % (1.7-9.3); PLATELET COUNT 205 K/mm3 (130-400); RED BLOOD COUNT 3.85 M/mm3 (4.10-5.30); WHITE BLOOD COUNT 13.5 K/mm3 (4.8-10.8)
[2016-12-19 19:27] LABS: HEMOGLOBIN 11.6 g/dl (12.5-16.0)
[2016-12-19 19:38] LABS: ADJUSTED CALCIUM 9.5 mg/dL (8.4-10.2); ALBUMIN 3.7 gm/dL (3.5-5.0); BILIRUBIN,TOTAL 0.7 mg/dL (0.0-1.0); C-REACTIVE PROTEIN 2.1 mg/dL (0.0-0.9); CALCIUM 9.3 mg/dL (8.4-10.2); CREATININE, serum 1.41 mg/dL (0.52-1.25); POTASSIUM 4.5 mmol/L (3.4-5.0); TOTAL PROTEIN 6.8 gm/dL (6.4-8.2)
[2016-12-19 20:18] LABS: COLLECTION METHOD CATHETER
[2016-12-19 20:25] LABS: MUCOUS Present /lpf; PH 6 (5-8); SQUAMOUS EPITHELIAL None Seen /hpf; URINE APPEARANCE Clear; URINE BACTERIA None Seen /hpf; URINE BILIRUBIN Negative (NEGATIVE); URINE BLOOD Negative (NEGATIVE); URINE COLOR Yellow; URINE GLUCOSE Negative (NEGATIVE); URINE KETONE Negative (NEGATIVE); URINE LEUKOCYTE ESTERASE Negative (NEGATIVE); URINE PROTEIN(semi-quant) Negative (NEGATIVE); URINE RBC None Seen /hpf; URINE UROBILINOGEN Negative (NEGATIVE); URINE WBC 0-2 /hpf
[2016-12-19] MEDS ORDERED: NORCO 325 MG-51 TAB PO (20:42)
[2016-12-20] VITALS (7 sets, daily range): BP systolic 102–144; BP diastolic 44–63; PULSE 67–103; TEMP 97.3–98.7
[2016-12-20 06:44] LABS: BASO % 0.4 % (0.0-2.0); EOS # 0.2 (0.0-0.7); EOS % 1.8 % (0-4.0); GRAN # 6.3 (1.4-6.5); GRAN % 62.5 % (42.2-75.2); LYMPH # 2.8 (1.2-3.4); LYMPH % 27.3 % (20.0-51.0); MEAN CELL VOLUME 100 fl (80.0-100.0); MEAN CORPUSCULAR HGB CONC 30 g/dl (33.0-37.0); MEAN PLATELET VOLUME 11.6 fl (7.4-10.4); MONO # 0.8 (0.1-0.6); MONO % 7.6 % (1.7-9.3); PLATELET COUNT 187 K/mm3 (130-400); RED BLOOD COUNT 3.54 M/mm3 (4.10-5.30); WHITE BLOOD COUNT 10.1 K/mm3 (4.8-10.8)
[2016-12-20 06:45] LABS: HEMATOCRIT 35.3 % (37.0-47.0); HEMOGLOBIN 10.7 g/dl (12.5-16.0); MEAN CORPUSCULAR HEMOGLOBIN 30 pg (27.0-31.0)
[2016-12-20 06:48] LABS: CALCIUM 8.8 mg/dL (8.4-10.2); CREATININE, serum 1.15 mg/dL (0.52-1.25); POTASSIUM 4.5 mmol/L (3.4-5.0)
[2016-12-21 05:44] VITALS: BP 132/43; PULSE 78; TEMP 98.7
[2016-12-21 06:34] LABS: BASO % 0.3 % (0.0-2.0); EOS % 0.3 % (0-4.0); GRAN # 6.9 (1.4-6.5); GRAN % 62.6 % (42.2-75.2); LYMPH # 3.3 (1.2-3.4); LYMPH % 29.5 % (20.0-51.0); MEAN CELL VOLUME 96 fl (80.0-100.0); MEAN CORPUSCULAR HGB CONC 31 g/dl (33.0-37.0); MEAN PLATELET VOLUME 11.4 fl (7.4-10.4); MONO # 0.8 (0.1-0.6); MONO % 6.8 % (1.7-9.3); PLATELET COUNT 202 K/mm3 (130-400); RED BLOOD COUNT 3.56 M/mm3 (4.10-5.30); WHITE BLOOD COUNT 11.1 K/mm3 (4.8-10.8)
[2016-12-21 06:35] LABS: HEMATOCRIT 34.3 % (37.0-47.0); HEMOGLOBIN 10.5 g/dl (12.5-16.0); MEAN CORPUSCULAR HEMOGLOBIN 29 pg (27.0-31.0)
[2016-12-21 06:47] LABS: CALCIUM 9.1 mg/dL (8.4-10.2); CREATININE, serum 0.99 mg/dL (0.52-1.25); PHOSPHOROUS 4.1 mg/dL (2.5-4.5); POTASSIUM 4.2 mmol/L (3.4-5.0)
[2016-12-21 07:30] VITALS: BP 123/44; PULSE 77; TEMP 97.9
[2016-12-21 11:55] VITALS: BP 135/43; PULSE 84; TEMP 97.7
[2016-12-21 15:54] VITALS: BP 128/62; PULSE 88; TEMP 98
[2016-12-21 19:39] VITALS: BP 135/53; PULSE 87; TEMP 98.1
[2016-12-22] VITALS: BP 136/58; PULSE 83; TEMP 97.7
[2016-12-22 03:20] VITALS: BP 126/50; PULSE 78; TEMP 97.6
[2016-12-22 07:10] VITALS: BP 148/77; PULSE 75; TEMP 97.2
[2016-12-22 08:26] LABS: BASO % 0.3 % (0.0-2.0); EOS # 0.1 (0.0-0.7); EOS % 0.4 % (0-4.0); GRAN # 6.9 (1.4-6.5); GRAN % 57.6 % (42.2-75.2); LYMPH # 4.2 (1.2-3.4); LYMPH % 35.3 % (20.0-51.0); MEAN CELL VOLUME 97 fl (80.0-100.0); MEAN CORPUSCULAR HGB CONC 31 g/dl (33.0-37.0); MEAN PLATELET VOLUME 11.4 fl (7.4-10.4); MONO # 0.7 (0.1-0.6); PLATELET COUNT 232 K/mm3 (130-400); RED BLOOD COUNT 3.81 M/mm3 (4.10-5.30)
[2016-12-22 08:28] LABS: HEMATOCRIT 36.9 % (37.0-47.0); HEMOGLOBIN 11.3 g/dl (12.5-16.0); MEAN CORPUSCULAR HEMOGLOBIN 30 pg (27.0-31.0)
[2016-12-22 08:46] LABS: CALCIUM 9.3 mg/dL (8.4-10.2); CREATININE, serum 0.95 mg/dL (0.52-1.25); PHOSPHOROUS 3.4 mg/dL (2.5-4.5); POTASSIUM 4.4 mmol/L (3.4-5.0)
[2016-12-22] MEDS ORDERED: LEVAQUIN 750MG750 M1 PO (10:59)
[2016-12-22] MEDS ORDERED: LASIX 40MG TABL40 MG PO (11:07)
[2016-12-22] MEDS ORDERED: LEVEMIR100 U/ML SQ (11:11)
[2016-12-22] MEDS ORDERED: PREDNISONE20 MG PO (11:12)
[2016-12-22] MEDS ORDERED: NOVLOG SQ (11:12)
[2016-12-22 11:29] VITALS: BP 146/56; PULSE 89; TEMP 98.8
== END 2016-12-22 13:50 | disposition home or self-care (01) | DRG 552 ==
LOC: COL.ER 18:55 → MEDICAL 21:13
PROVIDERS: Emergency Medicine; Internal Medicine; Nurse Practitioner Family
DX: M48.061 Spinal stenosis, lumbar region without neurogenic claudication (principal); N17.9 Acute kidney failure, unspecified; J44.1 Chronic obstructive pulmonary disease with (acute) exacerbation; I50.32 Chronic diastolic (congestive) heart failure; Z66 Do not resuscitate; E11.9 Type 2 diabetes mellitus without complications; I25.10 Atherosclerotic heart disease of native coronary artery without angina pectoris; Z95.5 Presence of coronary angioplasty implant and graft; Z87.891 Personal history of nicotine dependence; G25.81 Restless legs syndrome
CPT/HCPCS: 99223-AI; 99232-AI; 99239; J1644; J1815; J1940; J1956; J2270; J2405; J7030; J7512

== ENCOUNTER 2017-06-23 20:51 | Emergency (ER) | payer MEDICARE ==
[~2017-06-23] VITALS: Ht 157.5 cm; Wt 120.5 kg
[~2017-06-23 20:51] MED LIST changes: +CEFTIN 250250 MG/TAB PO; +KLONOPIN WAFER0.5 MG PO; +NOVLOG SQ
[2017-06-23 20:53] VITALS: TEMP 98.2
[2017-06-23 21:29] VITALS: BP 145/70; PULSE 92
== END 2017-06-23 22:03 | disposition home or self-care (01) ==
LOC: COL.ER 20:51
DX: M25.521 Pain in right elbow (principal); E11.9 Type 2 diabetes mellitus without complications; I50.9 Heart failure, unspecified; Z90.89 Acquired absence of other organs; Z90.710 Acquired absence of both cervix and uterus; Z95.5 Presence of coronary angioplasty implant and graft; Z88.0 Allergy status to penicillin; Z79.4 Long term (current) use of insulin; Z79.82 Long term (current) use of aspirin; Z79.51 Long term (current) use of inhaled steroids; Z79.01 Long term (current) use of anticoagulants